=== PATIENT | male | born 1940 | race Caucasian/White ===

== ENCOUNTER 2022-06-05 14:57 | Outpatient (CLI) | payer OTHER, SELFPAY ==
[2022-06-05 18:01] LABS: Albumin* 4.2 g/dL (3.3-5.0); Chloride* 106 mmol/L (96-114); Sodium* 139 mmol/L (135-149)
[2022-06-05 18:02] LABS: Potassium* 4.3 mmol/L (3.6-5.1)
[2022-06-05 18:03] LABS: Cholesterol* 161 mg/dL (90-199)
[2022-06-05 18:04] LABS: Alanine Aminotransferase* 21 U/L (4-50); Alkaline Phosphatase* 49 U/L (40-150); Aspartate Amino Transferase* 32 U/L (12-35); Bilirubin Total* 0.6 mg/dL (0.1-1.5); Blood Urea Nitrogen* 21 mg/dL (7-30); Carbon Dioxide* 25 mmol/L (20-32); Creatinine* 1.1 mg/dL (0.5-1.5); Estimated Glomerular Filt Rate 68 ml/min; Glucose* 100 mg/dL (60-115); Total Protein* 6.9 g/dL (6.0-8.3); Triglycerides* 85 mg/dL (40-149)
[2022-06-05 18:05] LABS: Calcium* 9.9 mg/dL (8.4-10.6); HDL Cholesterol* 44 mg/dL (>=40); LDL Cholesterol Calculated 100 mg/dL (<100)
[2022-06-05 18:37] LABS: PSA Screen* 3.58 ng/mL (0.10-4.00); TSH With Reflex to FT4* 0.598 uIU/mL (0.270-4.200)
== END 2022-06-05 14:58 | disposition home or self-care (01) ==
PROVIDERS: PCP Internal Medicine; Visit Provider Internal Medicine
DX: E78.5 Hyperlipidemia, unspecified (principal); E03.9 Hypothyroidism, unspecified; I10 Essential (primary) hypertension; Z13.9 Encounter for screening, unspecified; Z12.5 Encounter for screening for malignant neoplasm of prostate
CPT/HCPCS: 80053; 80061; 84153; 84443

== ENCOUNTER 2022-11-13 10:35 | Outpatient (CLI) | payer OTHER, SELFPAY ==
[2022-11-13 12:16] LABS: INR 0.91 (0.91-1.10); Prothrombin Time 12.9 Seconds
[2022-11-13 12:17] LABS: Partial Thromboplastin Time* 30 Seconds (23-33)
[2022-11-13 13:24] LABS: Albumin* 4.4 g/dL (3.3-5.0); Chloride* 105 mmol/L (96-114)
[2022-11-13 13:25] LABS: Potassium* 4.8 mmol/L (3.6-5.1); Sodium* 140 mmol/L (135-149)
[2022-11-13 13:27] LABS: Carbon Dioxide* 30 mmol/L (20-32); Creatinine* 1.2 mg/dL (0.5-1.5); Estimated Glomerular Filt Rate 61 ml/min
[2022-11-13 13:28] LABS: Alanine Aminotransferase* 38 U/L (4-50); Alkaline Phosphatase* 45 U/L (40-150); Aspartate Amino Transferase* 40 U/L (12-35); Bilirubin Total* 0.6 mg/dL (0.1-1.5); Blood Urea Nitrogen* 26 mg/dL (7-30); Calcium* 10.1 mg/dL (8.4-10.6); Glucose* 115 mg/dL (60-115); Total Protein* 6.9 g/dL (6.0-8.3)
[2022-11-13 15:00] LABS: Free T4 Free Thyroxine* 1.28 ng/dL (0.70-1.85)
== END 2022-11-13 10:36 | disposition home or self-care (01) ==
PROVIDERS: PCP Internal Medicine; Visit Provider Family Medicine
DX: S00.11XA Contusion of right eyelid and periocular area, initial encounter (principal)
CPT/HCPCS: 80053; 84439; 84443; 85610; 85730

== ENCOUNTER 2023-06-26 08:58 | Outpatient (CLI) | payer OTHER, SELFPAY | END 2023-06-26 08:59 | disposition home or self-care (01) | PROVIDERS: PCP Internal Medicine; Visit Provider Internal Medicine | DX: E03.9 Hypothyroidism, unspecified (principal); E78.5 Hyperlipidemia, unspecified; I10 Essential (primary) hypertension; Z12.5 Encounter for screening for malignant neoplasm of prostate | CPT/HCPCS: 80053; 80061; 84153; 84443 ==

== ENCOUNTER 2024-09-11 10:12 | Outpatient (CLI) | payer OTHER, SELFPAY ==
--- OUTSIDE RECORDS SUMMARY | 2024-09-15 20:53 | XMS_ITS | Clinical Summary ---
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 Medications Medication Sig Dispensed Refills Start Date End Date Status rosuvastatin (CRESTOR) 20 mg tablet Take 1 tablet by mouth once daily with evening meal. 30 tablet 2 12/25/2011 Active lisinopril (PRINIVIL; ZESTRIL) 2.5 mg tablet Take 1 tablet by mouth once daily. 30 tablet 2 12/25/2011 Active metoprolol (LOPRESSOR) 25 mg tablet Take 0.5 tablets by mouth 2 times daily. 30 tablet 2 12/25/2011 Active clopidogrel (PLAVIX) 75 mg tablet Take 1 tablet by mouth once daily. For at least one year 30 tablet 12 12/25/2011 Active nitroglycerin (NITROSTAT) 0.[address] 1 tablet under the tongue every 5 minutes if needed for Chest Pain. 1 0 12/25/2011 Active levothyroxine (SYNTHROID) 100 mcg tablet Take 1 tablet by mouth before breakfast. 30 tablet 2 12/26/2011 Active warfarin (COUMADIN) 5 mg tablet Take 0.5 tablets by mouth once daily. With repeat INR 12/28 30 tablet 2 12/26/2011 Active aspirin 325 mg tablet Take 325 mg by mouth once daily. Active Active Problems Problem Noted Date Diagnosed Date Ascending aortic aneurysm 09/12/2019 Aortic valve regurgitation 09/12/2019 Dyslipidemia 12/23/2011 Hypothyroidism 12/23/2011 Overview (12/23/2011): Not on replacement. Family history of ischemic heart disease 012 STEMI (ST elevation myocardial infarction) 12/23 CAD (coronary artery disease) 12/23/2011 Overview (12/23/2011): 12/22/11-Acute anterior myocardial infarction x12 hours with ongoing chest pains, and troponin at 9 on presentation. 2. Extensive anterior regional wall motion abnormality. 3. Successful left anterior descending drug-eluting stent placement and left anterior descending diagonal percutaneous transluminal coronary angioplasty. Screen for colon cancer 10/26/2009 Overview (10/26/2009): Colonoscopy 10/2009 normal repeat in 10 years Encounters Date Type Department Care Team Description 07/30/2024 Telephone [facility] [address] [place] [address] Tao Lee, AuD Hearing Aid from Last 3 Months Immunizations Name Administration Dates Next Due Pneumococcal Poly,23-Valent (Pneumovax) 12/24/19 12 Td (Age >=7 Years) 10/23/2005 Tdap 12/12/2009 Family History Medical History Relation Name Comments Other Father bladder ca Heart Disease Mother Cancer-colon Paternal Uncle Relation Name Status Comments Father Mother Paternal Uncle Social History Tobacco Use Types Packs/Day Years Used Date Smoking Tobacco: Former Smokeless Tobacco: Never Tobacco Cessation:Counseling Given: Yes Comments:pipe smoker in past Alcohol Use Standard Drinks/Week Comments Yes 0 (1 standard drink = 0.6 oz pur e alcohol) occas Social Connections Answer Date Recorded Frequency of Communication with Friends and Fami ly Not on file 11/05/2021 Financial Resource Strain Answer Date R ecorded Difficulty of Paying Living Expenses Not on file 11/05/2021 Difficulty of Paying Living Expenses Not on file 11/05/2021 Sex and Gender Information Value Date Recorded Sex Assigned at Not on file Gender Identity Not on file Sexual Orientation Not on file Obstetrics History Last Filed Vital Signs Vital Sign Reading Time Taken Comments Blood Pressure 148/74 07/03/2018 2:46 PM CDT Pulse 45 07/03/2018 2:46 PM CDT Temperature 36.8 ??C (98.2 ??F) 12/26/2011 8:00 AM CS T Respiratory Rate 16 12/26/2011 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 Oxygen Saturation 99% 07/03/2018 2:46 PM CDT Inhaled Oxygen Concentration - - Weight 67 kg (147 lb 12.8 oz) 07/03/2018 2:46 PM CDT Height 158.8 cm (5' 2.5) 06/11/2017 8:45 AM CDT Body Mass Index 26.6 06/11/2017 8:45 AM CDT Plan of Treatment Health Maintenance Due Date Last Done Comments Depression screening for age 12+ 1954 Zoster (shingles) series for age 50+ (1 of 2) 1992 Pneumococcal series for age 65+ (2 of 2 - PCV) 12/24/2012 12/24/2011 RSV vaccine for adults or (1 - 1-dose 75+ series) 2017 BMI (ht and wt on same day) for age 18+ 06/11/2018 06/11/2017 Tetanus booster 12/12/2019 12/12/2009, 10/23/2005 COVID-19 vaccine series ( season) 2024 08/06/2022, 06/01/2022, 08/23/2021, Additional history exists Influenza for age 65+ 07/06/2024 Tdap Completed 12/12/2009 Advance Directives * Full Code (Latest Code Status on File) Date Activated Date Inactivated Comments 12/23/2011 6:52 AM 12/26/2011 3:52 PM Care Teams Towel Cabinet Repairer Relationship Specialty Start Date End Date Alejandro Bedolla MD [address] [place] [id number] PCP - General 12/25/11
== END 2024-09-11 10:13 | disposition home or self-care (01) ==
LOC: NFLDREF 09-15 20:51
PROVIDERS: PCP Internal Medicine; Referring Provider Internal Medicine; Visit Provider Internal Medicine
DX: E78.5 Hyperlipidemia, unspecified (principal); I10 Essential (primary) hypertension; Z12.5 Encounter for screening for malignant neoplasm of prostate
CPT/HCPCS: 80053; 80061; G0103

== ENCOUNTER 2025-09-11 08:27 | Outpatient (CLI) | payer MEDICARE, BC, SELFPAY | END 2025-09-11 08:28 | disposition home or self-care (01) | LOC: NFLDREF 09-14 08:36 | PROVIDERS: PCP Internal Medicine; Referring Provider Internal Medicine; Visit Provider Internal Medicine | DX: I10 Essential (primary) hypertension (principal); E03.9 Hypothyroidism, unspecified; E78.5 Hyperlipidemia, unspecified | CPT/HCPCS: 80053; 80061; 84443; G0103 ==